=== PATIENT | male | born 1990 | race Caucasian/White ===

== ENCOUNTER 2016-06-06 07:06 | Emergency (ER) | payer OTHER ==
[~2016-06-06] VITALS: Ht 170.2 cm; Wt 81.8 kg
[~2016-06-06 07:06] MED LIST: ASPI325T6 PO; BACTRIM DS 8001 TAB PO; CEPHALEXIN500 M1 PO; CIPRO 500MG TA500 MG PO; FLEXERIL 1010 MG/TAB PO; MOTRIN 800800 MG/TAB PO; NORCO 325 MG-51 TAB PO; PERCOCET 325 MG1 TA2 PO; ROXICODONE 55 MG/TAB PO
[2016-06-06 07:10] VITALS: BP 145/80; TEMP 98.8
[2016-06-06 07:46] LABS: BASO % 0.8 % (0.0-2.0); EOS # 0.2 (0.0-0.7); GRAN % 57.5 % (42.2-75.2); HEMATOCRIT 43.6 % (42.0-52.0); HEMOGLOBIN 14.9 g/dl (13.5-18.0); LYMPH # 1.6 (1.2-3.4); LYMPH % 29.7 % (20.0-51.0); MEAN CELL VOLUME 84 fl (80.0-100.0); MEAN CORPUSCULAR HEMOGLOBIN 29 pg (27.0-31.0); MEAN CORPUSCULAR HGB CONC 34 g/dl (33.0-37.0); MONO # 0.4 (0.1-0.6); MONO % 7.8 % (1.7-9.3); PLATELET COUNT 251 K/mm3 (130-400); RED BLOOD COUNT 5.19 M/mm3 (4.20-5.60); REDCELL DISTRIBUTION WIDTH-CV 12.8 % (11.5-14.5); WHITE BLOOD COUNT 5.3 K/mm3 (4.8-10.8)
[2016-06-06 07:58] LABS: ADJUSTED CALCIUM 9.6 mg/dL (8.4-10.2); ALBUMIN 4.8 gm/dL (3.5-5.0); BILIRUBIN,TOTAL 0.7 mg/dL (0.0-1.0); CALCIUM 10.2 mg/dL (8.4-10.2); CREATININE, serum 1.16 mg/dL (0.66-1.25); POTASSIUM 3.9 mmol/L (3.4-5.0); TOTAL PROTEIN 7.8 gm/dL (6.4-8.2)
[2016-06-06 08:47] LABS: PH 5 (5-8); SQUAMOUS EPITHELIAL None Seen /hpf; URINE APPEARANCE Hazy; URINE BACTERIA Rare /hpf; URINE BILIRUBIN Negative (NEGATIVE); URINE BLOOD 3+ (NEGATIVE); URINE COLOR Yellow; URINE GLUCOSE Negative (NEGATIVE); URINE KETONE Negative (NEGATIVE); URINE RBC >50 /hpf; URINE UROBILINOGEN Negative (NEGATIVE)
[2016-06-06] MEDS ORDERED: CIPRO 500MG TA500 MG PO (09:31)
[2016-06-06] MEDS ORDERED: ZOFRAN 4MG T4 MG/TAB PO (09:31)
[2016-06-06] MEDS ORDERED: PERCOCET 325 MG1 TA2 PO (09:31)
[2016-06-06 10:03] VITALS: PULSE 60
== END 2016-06-06 10:50 | disposition home or self-care (01) ==
LOC: COL.ER 07:06
PROVIDERS: Physician Assistant Medical
DX: N13.2 Hydronephrosis with renal and ureteral calculous obstruction (principal); Z87.442 Personal history of urinary calculi; R11.2 Nausea with vomiting, unspecified
CPT/HCPCS: J1885; J2405; J7030

== ENCOUNTER → 2016-06-17 | Outpatient (CLI) | payer OTHER ==
[~2016-06-17] MED LIST changes: +ZOFRAN 4MG T4 MG/TAB PO
== END ==
LOC: COL.RAD 13:47
DX: S92.001D Unspecified fracture of right calcaneus, subsequent encounter for fracture with routine healing (principal); M85.871 Other specified disorders of bone density and structure, right ankle and foot

== ENCOUNTER → 2016-07-31 | Outpatient (CLI) | payer OTHER | LOC: COL.RAD 11:21 | DX: K76.0 Fatty (change of) liver, not elsewhere classified (principal); N20.0 Calculus of kidney ==

== ENCOUNTER → 2016-08-26 | Outpatient (CLI) | payer OTHER | LOC: MHCPAIN 11:58 | DX: M25.571 Pain in right ankle and joints of right foot (principal); M79.2 Neuralgia and neuritis, unspecified; S92.001S Unspecified fracture of right calcaneus, sequela | CPT/HCPCS: G0463 ==

== ENCOUNTER 2018-01-08 20:24 | Emergency (ER) | payer SELFPAY ==
[~2018-01-08] VITALS: Ht 170.2 cm; Wt 78.6 kg
[2018-01-08 20:28] VITALS: BP 146/86; TEMP 98.9
[2018-01-08] MEDS ORDERED: CEPHALEXIN500 M1 PO (23:16)
[2018-01-08 23:43] VITALS: PULSE 92
== END 2018-01-08 23:43 | disposition home or self-care (01) ==
LOC: COL.ER 20:24
DX: S61.411A Laceration without foreign body of right hand, initial encounter (principal); Z79.891 Long term (current) use of opiate analgesic; W25.XXXA Contact with sharp glass, initial encounter; Y92.009 Unspecified place in unspecified non-institutional (private) residence as the place of occurrence of the external cause

== ENCOUNTER → 2018-01-20 | Emergency (ER) | payer SELFPAY ==
[2018-01-20 14:53] VITALS: BP 143/90; PULSE 91; TEMP 98.4
== END ==
LOC: COL.ER 14:50
DX: S61.412D Laceration without foreign body of left hand, subsequent encounter (principal); X58.XXXD Exposure to other specified factors, subsequent encounter

== ENCOUNTER 2018-07-30 00:13 | Emergency (ER) | payer SELFPAY ==
[~2018-07-30] VITALS: Ht 170.2 cm; Wt 90.9 kg
[2018-07-30 00:32] VITALS: TEMP 98.3
[2018-07-30] MEDS ORDERED: NORCO 325 MG-51 TAB PO (04:13)
[2018-07-30 05:10] VITALS: BP 158/87; PULSE 65
== END 2018-07-30 05:17 | disposition home or self-care (01) ==
LOC: COL.ER 00:13
DX: S22.31XA Fracture of one rib, right side, initial encounter for closed fracture (principal); J40 Bronchitis, not specified as acute or chronic; F17.210 Nicotine dependence, cigarettes, uncomplicated; X58.XXXA Exposure to other specified factors, initial encounter
CPT/HCPCS: A9284; J1100; J1170; J1885

== ENCOUNTER 2019-12-16 11:27 | Emergency (ER) | payer SELFPAY ==
[~2019-12-16] VITALS: Ht 170.2 cm; Wt 78.2 kg
[2019-12-16 11:41] VITALS: TEMP 98
[2019-12-16 12:46] VITALS: BP 130/80; PULSE 86
== END 2019-12-16 12:48 | disposition home or self-care (01) ==
LOC: COL.ER 11:27
DX: S63.502A Unspecified sprain of left wrist, initial encounter (principal); F17.210 Nicotine dependence, cigarettes, uncomplicated; V49.40XA Driver injured in collision with unspecified motor vehicles in traffic accident, initial encounter

== ENCOUNTER 2024-02-22 17:45 | Emergency (ER) | payer SELFPAY ==
[~2024-02-22] VITALS: Ht 170.2 cm; Wt 70.5 kg
[2024-02-22 17:57] VITALS: TEMP 98.9
[2024-02-22] MEDS ORDERED: Morphine 4 MG/ML VIAL IV ONE (19:00)
[2024-02-22] MEDS ORDERED: Ketorolac 30 MG/ML VIAL IV ONE (19:00)
[2024-02-22] MEDS ORDERED: NS 1,000 ML IV ONE (19:00)
[2024-02-22 19:32] LABS: BASO # 0.1 K/mm3 (0.0-0.2); BASO % 0.5 % (0.0-2.0); EOS # 0.2 K/mm3 (0.0-0.7); EOS % 1.7 % (0.0-4.0); GRAN # 8.1 K/mm3 (1.4-6.5); GRAN % 72.3 % (42.2-75.2); HEMATOCRIT 44.1 % (42.0-52.0); HEMOGLOBIN 15.1 g/dl (13.5-18.0); LYMPH # 1.9 K/mm3 (1.2-3.4); LYMPH % 17.1 % (20.0-51.0); MEAN CELL VOLUME 89 fl (80.0-100.0); MEAN CORPUSCULAR HEMOGLOBIN 30 pg (27-31); MEAN CORPUSCULAR HGB CONC 34 g/dl (33.0-37.0); MEAN PLATELET VOLUME 10.6 fl (7.4-10.4); MONO # 0.9 K/mm3 (0.1-0.6); MONO % 8.1 % (1.7-9.3); PLATELET COUNT 346 K/mm3 (130-400); RED BLOOD COUNT 4.97 M/mm3 (4.20-5.60); REDCELL DISTRIBUTION WIDTH-CV 12.7 % (11.5-14.5)
[2024-02-22 19:42] LABS: ALBUMIN 3.9 g/dL (3.5-5.0); BILIRUBIN,TOTAL 0.2 mg/dL (0.2-1.2); C-REACTIVE PROTEIN 0.89 mg/dL (0.00-0.50); CALCIUM 9.4 mg/dL (8.4-10.2); CREATININE, serum 0.92 mg/dL (0.72-1.25); TOTAL PROTEIN 7.4 g/dl (6.2-8.1)
[2024-02-22] MEDS ORDERED: NORCO 325 MG-51 TAB PO (20:06)
[2024-02-22] MEDS ORDERED: CLEOCIN HCL300 MG PO (20:06)
[2024-02-22 20:51] VITALS: BP 148/77; PULSE 80
== END 2024-02-22 20:53 | disposition home or self-care (01) ==
LOC: COL.ER 17:45
PROVIDERS: Nurse Practitioner
DX: K08.89 Other specified disorders of teeth and supporting structures (principal); L03.211 Cellulitis of face; E11.65 Type 2 diabetes mellitus with hyperglycemia; F17.210 Nicotine dependence, cigarettes, uncomplicated; F17.290 Nicotine dependence, other tobacco product, uncomplicated
CPT/HCPCS: J0737; J1885; J2270; J7030